=== PATIENT | female | born 1970 | race Caucasian/White ===

== ENCOUNTER 2017-07-29 18:01 | Inpatient (IN) | payer MEDICARE, MEDICAID ==
[2017-07-29] MEDS ORDERED: Sodium Chloride 0.9% 1,000 ML IV ONE (18:40)
--- NOTE | 2017-07-29 18:47 | ED Physician Chart ---
Chief Complaint/HPI - Patient Information Date Seen:: 07/29/17 Time Seen:: 18:42 Chief Complaint:: htn History of Present Illness:: report was pt was sent from [facility] where she is on a 5150 hold due to htn noted by staff today. pt has hx of htn and is on htn meds. pt reports she is here bc she has vomited 10x (Bile/nonbloody) in last day. has some abd aches which are somewhat better now. she thinks maybe has a stomach virus but has been around no known sick contacts. low grade fever 99 x few days. no bakc pain. no dysuria. no blood in stool. Allergies:: Allergies Allergy/AdvReac Type Severity Reaction Status Date / Time Sulfa (Sulfonamide Allergy Verified 07/29/17 18:28 Antibiotics) Vitals:: Vital Signs - 8 hr 07/29/17 18:28 Temp 99.1 F HR 94 RR 16 BP 162/101 O2 Sat % 99 Historian:: Patient Review:: Transfer documents Reviewed Review of Systems - Review of Systems General/Constitutional: No fever, No chills, No weight loss, No weakness, No diaphoresis, No edema, No loss of appetite Skin: No skin lesions, No rash, No bruising Head: No headache, No light-headedness Eyes: No loss of vision, No pain, No diplopia ENT: No earache, No nasal drainage, No sore throat, No tinnitus Neck: No neck pain, No swelling, No thyromegaly, No stiffness, No mass noted Cardio Vascular: No chest pain, No palpitations, No PND, No orthopnea, No edema Pulmonary: No SOB, No cough, No sputum, No wheezing GI: No nausea, Vomiting, No diarrhea, Pain, No melena, No hematochezia, No constipation, No hematemesis G/U: No dysuria, No frequency, No hematuria Musculoskeletal: No bone or joint pain, No back pain, No muscle pain Endocrine: No polyuria, No polydipsia Psychiatric: No prior psych history, No depression, No anxiety, No suicidal ideation Hematopoietic: No bruising, No lymphadenopathy Allergic/Immuno: No urticaria, No angioedema Neurological: No syncope, No focal symptoms, No weakness, No paresthesia, No headache, No seizure, No dizziness, No confusion, No vertigo, Other (no neuro changes, no MEAD. ) Past Medical History - Past Medical History Past Medical History: HTN Social History: Care Facility Psychiatricy History: Other (on 5150 psych hold) Medication: Reviewed Physical Exam - Physical Examination General/Constitutional: Awake, Well-developed, well-nourished, Alert, No distress, GCS 15, Non-toxic appearing, Ambulatory Other Gen/Cons comments:: wn/wh. alert. nad. neuro exam wnl. abd mild tndr..vague..not localized. nrml nabs. Head: Atraumatic Eyes: Lids, conjuctiva normal, PERRL, EOMI Skin: Nl inspection, No rash, No skin lesions, No ecchymosis, Well hydrated, No lymphadenopathy ENMT: External ears, nose nl, Nasal exam nl, Lips, teeth, gums nl Neck: Nontender, Full ROM w/o pain, No JVD, No nuchal rigidity, No bruit, No mass, No stridor Respiratory: Nl effort/Exclusion, Clear to Auscultation, No Wheeze/Rhonchi/Rales Cardio Vascular: RRR, No murmur, gallop, rubs, NL S1 S2 GI: No tenderness/rebounding/guarding, No organomegaly, No hernia, Normal BS's, Nondistended, No mass/bruits, No McBurney tenderness : No CVA tenderness Extremities: No tenderness or effusion, Full ROM, normal strength in all extremities, No edema, Normal digits & nails Neuro/Psych: Alert/oriented, DTR's symmetric, Normal sensory exam, Normal motor strength, Judgement/insight normal, Mood normal, Normal gait, No focal deficits Misc: normal gait, Normal back, No paraspinal tenderness Labs/Radiology/EKG Results - Lab Results Results: Laboratory Tests 07/29/17 07/29/17 07/29/17 18:44 18:44 18:44 WBC 12.1 H RBC 5.07 Hgb 15.0 Hct 45.6 H MCV 89.9 MCH 29.6 MCHC Differential 32.9 RDW 14.0 Plt Count 449 H MPV 7.9 Neutrophils % 82.7 H Lymphocytes % 12.5 L Monocytes % 4.5 Eosinophils % 0.2 Basophils % 0.1 Sodium 132 L Potassium 4.2 Chloride 97 L Carbon Dioxide 25.5 Anion Gap 13.7 BUN 17 Creatinine 0.8 Est GFR ( Amer) > 60.0 Est GFR (Non-Af Amer) > 60.0 BUN/Creatinine Ratio 21.3 Glucose 131 H Whole Bld Lactic Acid Calcium 9.5 Total Bilirubin 0.4 AST 25 ALT 12 Alkaline Phosphatase 89 Troponin I < 0.01 L Total Protein 7.1 Albumin 4.3 Globulin 2.8 Albumin/Globulin Ratio 1.5 Lipase Urine Source Urine Color Urine Clarity Urine pH Ur Specific [place] Urine Protein Urine Glucose (UA) Urine Ketones Urine Blood Urine Nitrate Urine Bilirubin Urine Urobilinogen Ur Leukocyte Esterase Urine RBC Urine WBC Ur Epithelial Cells Urine Bacteria Urine Test 07/29/17 07/29/17 07/29/17 18:44 19:57 20:20 WBC RBC Hgb Hct MCV MCH MCHC Differential RDW Plt Count MPV Neutrophils % Lymphocytes % Monocytes % Eosinophils % Basophils % Sodium Potassium Chloride Carbon Dioxide Anion Gap BUN Creatinine Est GFR ( Amer) Est GFR (Non-Af Amer) BUN/Creatinine Ratio Glucose Whole Bld Lactic Acid 2.17 H* Calcium Total Bilirubin AST ALT Alkaline Phosphatase Troponin I Total Protein Albumin Globulin Albumin/Globulin Ratio Lipase 13 Urine Source CLEAN C Urine Color YELLOW Urine Clarity HAZY Urine pH 7.5 Ur Specific [place] 1.010 Urine Protein 30 H Urine Glucose (UA) NEGATIVE Urine Ketones NEGATIVE Urine Blood LARGE H Urine Nitrate NEGATIVE Urine Bilirubin NEGATIVE Urine Urobilinogen 0.2 Ur Leukocyte Esterase NEGATIVE Urine RBC 25-50 H Urine WBC 0-2 Ur Epithelial Cells MODERATE Urine Bacteria NONE SEEN Urine Test 07/29/17 20:20 WBC RBC Hgb Hct MCV MCH MCHC Differential RDW Plt Count MPV Neutrophils % Lymphocytes % Monocytes % Eosinophils % Basophils % Sodium Potassium Chloride Carbon Dioxide Anion Gap BUN Creatinine Est GFR ( Amer) Est GFR (Non-Af Amer) BUN/Creatinine Ratio Glucose Whole Bld Lactic Acid Calcium Total Bilirubin AST ALT Alkaline Phosphatase Troponin I Total Protein Albumin Globulin Albumin/Globulin Ratio Lipase Urine Source Urine Color Urine Clarity Urine pH Ur Specific [place] Urine Protein Urine Glucose (UA) Urine Ketones Urine Blood Urine Nitrate Urine Bilirubin Urine Urobilinogen Ur Leukocyte Esterase Urine RBC Urine WBC Ur Epithelial Cells Urine Bacteria Urine Test NEGATIVE - Radiology Results Results: ct abd/p - nad - EKG Interpretations EKG Time:: 19:15 Rate & Rhythm: nsr 91 [place]: 68 Intervals: qtc 466 Comments:: ?lvh. no injury pattern ED Septic Shock - . Is Septic Shock (SBP<90, OR Lactate>4 mmol\L) present?: No - <6hrs of presentation: Vital Signs: Vital Signs - 8 hr 07/29/17 18:28 Temp 99.1 F HR 94 RR 16 BP 162/101 O2 Sat % 99 Reassessment (Disposition) - Reassessment Reassessment:: pts htn is not improving. she vomited here 1x and thinks maybe vomited the catapres dose. her emesis was seen by David WHITE who reports it was coffee grnd in appearance. the emesis sample was apparently discarded before I had a chance to examine it. Reassessment Condition:: Improved - Diagnosis Diagnosis:: 1 nausea/vomiting 2 abdominal pain 3 poorly ctrld htn 4 possible ugi bleed - Patient Disposition Admitted to:: Telemetry Condition at Disposition:: Improved
[2017-07-29 19:06] LABS: ALB/GLOB RATIO 1.5 (1.0-1.8); ALKALINE PHOSPHATASE 89 U/L (34-104); ANION GAP 13.7 (7.0-16.0); BILIRUBIN,TOTAL 0.4 mg/dL (0.3-1.0); BUN - UREA NITROGEN 17 mg/dL (7-25); BUN/CREATININE RATIO 21.3; CALCIUM SERUM 9.5 mg/dL (8.6-10.3); CARBON DIOXIDE 25.5 mEq/L (21.0-31.0); CHLORIDE 97 mEq/L (98-107); CREATININE - SERUM 0.8 mg/dL (0.6-1.2); GLUCOSE 131 mg/dL (70-105); POTASSIUM SERUM 4.2 mEq/L (3.5-5.1); SGOT 25 U/L (13-39); SGPT/ALT 12 U/L (7-52); SODIUM SERUM 132 mEq/L (136-145)
[2017-07-29 19:15] LABS: NEUTROPHILE ABSOLUTE 10.1 Th/cmm (1.8-8.0)
[2017-07-29 19:27] LABS: % BASOPHILS 0.1 % (0.0-2.0); % EOSINOPHILS 0.2 % (0.0-5.0); % LYMPHOCYTES 12.5 % (20.0-50.0); % MONOCYTES 4.5 % (2.0-10.0); % NEUTROPHILS 82.7 % (40.0-80.0); HEMATOCRIT 45.6 % (35.0-45.0); MEAN CELL VOLUME 89.9 fl (81-100); MEAN CORPUSCULAR HEMOGLOBIN 29.6 pg (27.0-31.0); MEAN CORPUSCULAR HGB CONC 32.9 pg (28.0-36.0); MEAN PLATELET VOLUME 7.9 fl; PLATELET COUNT 449 Th/cmm (150-400); RED BLOOD COUNT 5.07 Mil/cmm (3.80-5.10)
[2017-07-29 19:34] LABS: WHITE BLOOD COUNT 12.1 Th/cmm (4.8-10.8)
[2017-07-29 21:00] LABS: URINE BILIRUBIN NEGATIVE (NEGATIVE); URINE BLOOD LARGE (NEGATIVE); URINE GLUCOSE (UA) NEGATIVE (NEGATIVE); URINE KETONE NEGATIVE (NEGATIVE); URINE PH 7.5 (4.6 - 8.0); URINE PROTEIN 30 mg/dL (NEGATIVE); URINE UROBILINOGEN 0.2 E.U./dL (0.2 - 1.0)
[2017-07-29 21:35] LABS: URINE COLOR YELLOW
[2017-07-29 21:37] LABS: URINE BACTERIA NONE SEEN /hpf (NONE SEEN); URINE EPITHELIAL CELLS MODERATE /lpf (FEW); URINE RBC 25-50 /hpf (0-5); URINE WBC 0-2 /hpf (0-5)
[2017-07-29 21:43] LABS: INR 0.97 (0.5-1.4); PROTHROMBIN TIME (TEST) 10.1 SECONDS (9.5-11.5)
[2017-07-30] MEDS ORDERED: D5-0.45NS 1,000 ML IV SCH (00:40)
[2017-07-30 02:00] VITALS: BP 164/99
[2017-07-30] MEDS ORDERED: cloNIDine 0.2 mg/24 hr Tdm TD SCH (02:00)
--- NOTE | 2017-07-30 08:21 | Diagnostic Imaging Report ---
CT abdomen and pelvis without intravenous contrast Indication: Abdominal pain and vomiting Comparison: None, Technique: Axial images were obtained from the lung bases to the bilateral proximal femurs without IV contrast. Coronal reconstructions were made. total DLP: 383, CTDI7.7 FINDINGS: Hypoventilatory and atelectatic lung changes are noted. There is a 3.3 x 2 cm indeterminate lesion along the inferior right lobe the liver. Additional subcentimeter hepatic lesions are seen to small to characterize. No focal splenic or pancreatic lesions. No focal adrenal lesions. There is hyperplasia of the left adrenal gland. There is suggestion of adjacent small 7 mm lymph node (image 23, series 2) No evidence of hydronephrosis or focal renal lesions. Distended urinary bladder is noted. Nonspecific gas-filled loops of bowel are noted. No evidence of appendicitis. No evidence of free air or free fluid. Minimal atherosclerosis is noted. The osseous structures demonstrate no acute abnormalities. IMPRESSION: Nonspecific gas-filled loops of bowel without evidence of obstruction. No evidence of appendicitis. Indeterminate 3.3 x 2 cm mass along the inferior right lobe the liver. Further assessment CT liver mass protocol is recommended. Distended urinary bladder catheter no evidence of hydronephrosis. Hyperplasia of left adrenal gland incidentally noted. There is suggestion of a small Adjacent 7 mm lymph node also noted , nonspecific but consider follow-up surveillance.
[2017-07-30] MEDS ORDERED: Magnesium Hydroxide (MOM) 30 mL UDC PO PRN (09:35)
--- NOTE | 2017-07-30 10:01 | History and Physical ---
History of Present Illness - HPI Chief Complaint: HTN HPI: 47 year old female who present to [facility] from [facility] for a 5150 hold due to elevated blood pressure noted by staff today. Patient has a previous history of HTN and is currently on BP meds. Patient presents to the ER with low grade fever for the past few days. denies back pain. No dysuria, Denies blood in the stool. While in the ER patient was noted to have BP elevated at 160/100. Vital Signs: Last Vital Signs Temp 98.5 F 07/30/17 04:23 Pulse 77 07/30/17 04:23 Resp 18 07/30/17 04:23 BP 155/95 07/30/17 04:23 Pulse Ox 97 07/30/17 04:23 Past Medical History Cardiovascular: Report: HTN Pulmonary: Report: No Pertinent Hx TISSUE TECHNOLOGIST: Report: No Pertinent Hx GI: Report: No Pertinent Hx Psych: Report: Psychosis Musculoskeletal: Report: No Pertinent Hx Rheumatologic: Report: No pertinent Hx Infectious Disease: Report: No Pertinent Hx Renal/: Report: No Pertinent Hx Endocrine: Report: No Pertinent Hx Dermatology: Report: No Pertinent Hx - Past Surgical History Past Surgical History: No pertinent Hx Family Medical History - Family Member Mother History Unknown: Yes Social History Smoke: No Alcohol: None Drugs: None Lives: Detention - Medications Home Medications: Home Medication Medication Instructions Recorded Type Acetaminophen [Acetaminophen ER] 650 mg PO PRN 07/30/17 History Clonidine HCl [Catapres] 0.1 mg PO Q6HR PRN 07/30/17 History Diphenhydramine HCl 50 mg PO Q6HR PRN 07/30/17 History Haloperidol 5 mg PO Q6HR PRN 07/30/17 History Ibuprofen 400 mg PO Q4HR PRN 07/30/17 History Lorazepam 1 mg PO Q6HR PRN 07/30/17 History Magnesium Hydroxide [Milk of 30 ml PO DAILY PRN 07/30/17 History Magnesia] OLANZapine [ZyPREXA] 10 mg PO BID 07/30/17 History Ondansetron HCl PO Q6HR PRN 07/30/17 History Trazodone HCl 50 mg PO HS PRN 07/30/17 History Valproic Acid (As Sodium Salt) PO TID 07/30/17 History [Valproic Acid] hydrOXYzine Pamoate [Vistaril] 2 Q4HR PRN 07/30/17 History - Allergies Allergies/Adverse Reactions: Allergies Allergy/AdvReac Type Severity Reaction Status Date / Time Sulfa (Sulfonamide Allergy Verified 07/29/17 18:28 Antibiotics) Review of Systems - Review of Systems Constitutional: Report: No Significant Eyes: Report: No Significant ENT: Report: No Significant Respiratory: Report: No Significant Cardiovascular: Report: No Significant Gastrointestinal: Report: No Significant Genitourinary: Report: No Significant Musculoskeletal: Report: No Significant Skin: Report: No Significant Neurological: Report: No Significant Physical Exam - Physical Exam HEENT: Report: Ears Nose Throat within normal limits Neck: Report: Within normal limits Cardiovascular Systems: Report: +s1/s2 noted, Regular, Rate and Rhythm Respiratory: Report: Breath Sounds are within normal limits Abdomen: Report: Non-tender to palpation Back: Report: Inspection of back is within normal limits. Extremities: Report: Non-tender to palpation. Skin: Report: Color of skin is within normal limits Neuro/Psych: Report: Mood affect is within normal limits - Lab Results All Lab Results last 24 hours: Laboratory Last Values WBC 12.1 Th/cmm (4.8-10.8) H 07/29/17 18:44 RBC 5.07 Mil/cmm (3.80-5.10) 07/29/17 18:44 Hgb 15.0 gm/dL (11.7-15.5) 07/29/17 18:44 Hct 45.6 % (35.0-45.0) H 07/29/17 18:44 MCV 89.9 fl (81-100) 07/29/17 18:44 MCH 29.6 pg (27.0-31.0) 07/29/17 18:44 MCHC Differential 32.9 pg (28.0-36.0) 07/29/17 18:44 RDW 14.0 % (11.5-20.0) 07/29/17 18:44 Plt Count 449 Th/cmm (150-400) H 07/29/17 18:44 MPV 7.9 fl 07/29/17 18:44 Neutrophils % 82.7 % (40.0-80.0) H 07/29/17 18:44 Lymphocytes % 12.5 % (20.0-50.0) L 07/29/17 18:44 Monocytes % 4.5 % (2.0-10.0) 07/29/17 18:44 Eosinophils % 0.2 % (0.0-5.0) 07/29/17 18:44 Basophils % 0.1 % (0.0-2.0) 07/29/17 18:44 PT 10.1 SECONDS (9.5-11.5) 07/29/17 19:57 INR 0.97 (0.5-1.4) 07/29/17 19:57 PTT (Actin FS) 22.0 SECONDS (26.0-38.0) L 07/29/17 19:57 Sodium 132 mEq/L (136-145) L 07/29/17 18:44 Potassium 4.2 mEq/L (3.5-5.1) 07/29/17 18:44 Chloride 97 mEq/L (98-107) L 07/29/17 18:44 Carbon Dioxide 25.5 mEq/L (21.0-31.0) 07/29/17 18:44 Anion Gap 13.7 (7.0-16.0) 07/29/17 18:44 BUN 17 mg/dL (7-25) 07/29/17 18:44 Creatinine 0.8 mg/dL (0.6-1.2) 07/29/17 18:44 Est GFR ( Amer) > 60.0 ml/min (>90) 07/29/17 18:44 Est GFR (Non-Af Amer) > 60.0 ml/min 07/29/17 18:44 BUN/Creatinine Ratio 21.3 07/29/17 18:44 Glucose 131 mg/dL (70-105) H 07/29/17 18:44 Whole Bld Lactic Acid 2.03 mmol/L (0.60-1.99) H* 07/29/17 21:57 Calcium 9.5 mg/dL (8.6-10.3) 07/29/17 18:44 Total Bilirubin 0.4 mg/dL (0.3-1.0) 07/29/17 18:44 AST 25 U/L (13-39) 07/29/17 18:44 ALT 12 U/L (7-52) 07/29/17 18:44 Alkaline Phosphatase 89 U/L (34-104) 07/29/17 18:44 Troponin I < 0.01 ng/mL (0.01-0.05) L 07/29/17 18:44 Total Protein 7.1 gm/dL (6.0-8.3) 07/29/17 18:44 Albumin 4.3 gm/dL (3.7-5.3) 07/29/17 18:44 Globulin 2.8 gm/dL 07/29/17 18:44 Albumin/Globulin Ratio 1.5 (1.0-1.8) 07/29/17 18:44 Lipase 13 U/L (11-82) 07/29/17 18:44 Urine Source CLEAN C 07/29/17 20:20 Urine Color YELLOW 07/29/17 20:20 Urine Clarity HAZY (CLEAR) 07/29/17 20:20 Urine pH 7.5 (4.6 - 8.0) 07/29/17 20:20 Ur Specific [place] 1.010 (1.005-1.030) 07/29/17 20:20 Urine Protein 30 mg/dL (NEGATIVE) H 07/29/17 20:20 Urine Glucose (UA) NEGATIVE mg/dL (NEGATIVE) 07/29/17 20:20 Urine Ketones NEGATIVE mg/dL (NEGATIVE) 07/29/17 20:20 Urine Blood LARGE (NEGATIVE) H 07/29/17 20:20 Urine Nitrate NEGATIVE (NEGATIVE) 07/29/17 20:20 Urine Bilirubin NEGATIVE (NEGATIVE) 07/29/17 20:20 Urine Urobilinogen 0.2 E.U./dL (0.2 - 1.0) 07/29/17 20:20 Ur Leukocyte Esterase NEGATIVE (NEGATIVE) 07/29/17 20:20 Urine RBC 25-50 /hpf (0-5) H 07/29/17 20:20 Urine WBC 0-2 /hpf (0-5) 07/29/17 20:20 Ur Epithelial Cells MODERATE /lpf (FEW) 07/29/17 20:20 Urine Bacteria NONE SEEN /hpf (NONE SEEN) 07/29/17 20:20 Urine Test NEGATIVE 07/29/17 20:20 Blood Type A POSITIVE 07/29/17 21:57 Antibody Screen NEGATIVE 07/29/17 21:57 - Assessment Assessment: intractable nausea/vomiting abdominal pain liver mass noted on CTabd ... will order Abd U/S. GI consult with Dr. Phelps htn elevated ... will add losartan 50mg PO daily. continue to monitor BP possible GIB ... repeat CBC. will order stool occult x 2. Patient on Protonix IV. GI consult. - Plan Plan: intractable nausea/vomiting abdominal pain liver mass noted on CTabd ... will order Abd U/S. GI consult with Dr. Phelps htn elevated ... will add losartan 50mg PO daily. continue to monitor BP possible GIB ... repeat CBC. will order stool occult x 2. Patient on Protonix IV. GI consult.
[2017-07-30] MEDS ORDERED: IOHEXOL 300MG/ML 100 ML VIAL IVP ONE (10:38)
--- NOTE | 2017-07-30 13:32 | Diagnostic Imaging Report ---
Ultrasound abdomen HISTORY: Abdominal pain COMPARISON: CT abdomen and pelvis the same day Technique: Sonography of the abdomen was performed in multiple planes. FINDINGS: The liver demonstrates normal echogenicity with no evidence of focal lesions. The liver measures 14 cm. Gallbladder sludge is noted. Note that small gallstones cannot be definitely excluded. No evidence of gallbladder thickening. The common bile duct measures 3 mm. Evaluation of the pancreas is limited due to bowel gas. The right kidney measures 10.4 x 4.5 cm. No evidence of focal lesions or hydronephrosis. The left kidney measures 9.3 x 5.2 cm. No evidence of focal lesions or hydronephrosis. The spleen measures 9 cm. IMPRESSION: Small amount of gallbladder sludge noted. Note that tiny gallstones cannot be completely excluded. No evidence of gallbladder wall thickening or common bile duct dilatation. No evidence of hydronephrosis.
--- NOTE | 2017-07-30 14:34 | Diagnostic Imaging Report ---
CT abdomen and pelvis without and with intravenous contrast, liver mass protocol Indication: Liver mass Comparison: The abdomen and pelvis on 07/29/2017, Technique: Axial images were obtained from the lung bases to the bilateral iliac crests before and following administration of IV contrast, liver mass protocol Coronal reconstructions were made. total DLP: 455, CTDI 21 FINDINGS: Hypoventilatory atelectatic changes of the lung bases are noted. Few subcentimeter low-density lesions in liver are noted to small characterize suggestive of cysts. There is a 3.3 x 2 cm lesion within the right lobe of the liver. This demonstrates centripetal enhancement on arterial phase images with continued filling in on portal venous images complete filling in on delayed images. This is consistent with a hemangioma. There is also an additional lesion seen along the posterior right lobe liver measuring 1.3 x 1.6 cm demonstrating peripheral centripetal enhancement with continued filling and also most food service representative of a hemangioma. No focal splenic or pancreatic lesions. No focal adrenal lesions. No evidence of hydronephrosis or focal renal lesions. Note the right kidney was incompletely visualized. The osseous structures demonstrate no acute abnormalities. IMPRESSION: 2 liver lesions the largest of which corresponding to lesion seen on recent CT examination without IV contrast. Characteristics of enhancement are most suggestive of liver hemangioma.s If indicated a follow-up surveillance CT in 6-12 months may be obtained Additional subcentimeter low-density liver lesions of the liver too small to characterize but suggestive of cysts.
[2017-07-30 16:28] LABS: % EOSINOPHILS 0.3 % (0.0-5.0); % LYMPHOCYTES 19.3 % (20.0-50.0); % MONOCYTES 5.5 % (2.0-10.0); % NEUTROPHILS 73.9 % (40.0-80.0); HEMATOCRIT 43.6 % (35.0-45.0); HEMOGLOBIN 14.6 gm/dL (11.7-15.5); MEAN CELL VOLUME 89.5 fl (81-100); MEAN CORPUSCULAR HEMOGLOBIN 29.8 pg (27.0-31.0); MEAN CORPUSCULAR HGB CONC 33.4 pg (28.0-36.0); MEAN PLATELET VOLUME 7.5 fl; NEUTROPHILE ABSOLUTE 7.7 Th/cmm (1.8-8.0); PLATELET COUNT 494 Th/cmm (150-400); RED BLOOD COUNT 4.88 Mil/cmm (3.80-5.10); RED CELL DISTRIBUTION WIDTH 13.9 % (11.5-20.0); WHITE BLOOD COUNT 10.4 Th/cmm (4.8-10.8)
[2017-07-30 16:48] LABS: ALB/GLOB RATIO 1.6 (1.0-1.8); ALKALINE PHOSPHATASE 87 U/L (34-104); ANION GAP 11.6 (7.0-16.0); BILIRUBIN,TOTAL 0.5 mg/dL (0.3-1.0); BUN - UREA NITROGEN 14 mg/dL (7-25); CALCIUM SERUM 9.3 mg/dL (8.6-10.3); CARBON DIOXIDE 23.2 mEq/L (21.0-31.0); CHLORIDE 97 mEq/L (98-107); CREATININE - SERUM 0.7 mg/dL (0.6-1.2); GLUCOSE 115 mg/dL (70-105); POTASSIUM SERUM 3.8 mEq/L (3.5-5.1); SGOT 28 U/L (13-39); SGPT/ALT 17 U/L (7-52); SODIUM SERUM 128 mEq/L (136-145)
--- NOTE | 2017-07-31 04:18 | Consultation ---
DATE OF CONSULTATION: 07/30/2017 REASON FOR CONSULTATION: GI bleed and abnormal CAT scan. HISTORY OF PRESENT ILLNESS: This consult was obtained through the courtesy of Dr. Kidd for this 47-year-old with history of bipolar disorder, hypertension, who presented to the hospital with nausea, vomiting, and hematemesis. Apparently, the patient was in the Psych Unit and was given lots of medications. Supposedly according to a story, she did have stomachache. She started vomiting for 2 days and vomited some blood. She was brought into the hospital here. The patient stated she had a colonoscopy and endoscopy within a year and everything was good. She denies any weight loss. Denies any diarrhea or constipation. She has very infrequent rectal bleeding, when she is constipated. She has nausea and vomiting as stated above and she denies any abdominal pain. PAST MEDICAL HISTORY: Hypertension and bipolar disorder. PAST SURGICAL HISTORY: She denies it. SOCIAL HISTORY: Smokes 1 pack a day. Denies alcohol or drugs. FAMILY HISTORY: Mother had breast cancer. REVIEW OF SYSTEMS: As stated above. No weight loss. No diarrhea or constipation. There is some occasional rectal bleeding. No abdominal pain. PHYSICAL EXAMINATION: GENERAL: The patient is awake, oriented to self, place, and time, in no acute distress. VITAL SIGNS: Blood pressure was 155/95, heart rate was 77, respiratory rate was 18, and temperature was 98.5. HEAD AND NECK: Pupils are reactive to light. Extraocular muscles intact. Sclerae are anicteric. Conjunctivae not pale. Oral cavity, no lesion. NECK: Supple. No jugular venous distention. No carotid bruit or lymph node. CHEST: Good respiratory movements. LUNGS: Clear to auscultation. CARDIOVASCULAR: Regular rate and rhythm. No murmur or gallop. ABDOMEN: Soft, nontender, and nondistended. Bowel sounds are present. EXTREMITIES: Lower extremities, no edema. CENTRAL NERVOUS SYSTEM: Nonfocal. LABORATORY DATA: White count 12.1. Rest of CBC unremarkable. PT is normal. Chemistry showed lactic acid 2.17, repeat was 2.03. Liver enzymes were normal. Troponin was normal. The patient had a CAT scan without contrast, which showed nonspecific gas-filled loops of bowel. No obstruction. No appendicitis. There is a 3.3 x 2 cm mass along the inferior right loop of the liver, distended bladder. IMPRESSION: This is a 47-year-old with bipolar and hypertension, presented with nausea, vomiting, hematemesis, and a lesion inferior to the liver. ASSESSMENT AND PLAN: 1. Nausea, vomiting, and hematemesis. Most likely, as the patient stated this is a side effect to the medications and maybe with recurrent vomiting, she had a small Calli-King tear. We offered her an endoscopy, at that time she declined it stating that she had one within a year even though I stated to her that at that time she was not having hematemesis, but at this time, she is still insisting not having it. Other differential might include cholelithiasis, especially with the lactic acid. Recommendations: 1. We will await ultrasound. 2. We will recheck liver enzymes in the morning. 3. We will start the patient on soft diet. 4. We will check CBC in the morning. 5. If future bleeding, the patient might reconsider the endoscopy. 6. Further recommendations to follow. 2. Lesion, inferior to the liver. This could be some incidental finding, could be a liver mass. So at this time, we will check a CT scan with liver protocol. We will check liver enzymes in the morning. We will check alpha fetoprotein. We will check hepatitis panel and then further recommendations to follow. Other medical problems such as hypertension and bipolar disorder as per Dr. Kidd. Thank you, Dr. Kidd for allowing me to participate in the care of the patient. If you have any further questions, please let me know. [facility]# [id number]
--- NOTE | 2017-07-31 08:11 | General Progress Note ---
Subjective - Review of Systems Service Date: 07/31/17 Subjective: Awake,alert,afebrile. complains of headache today. Underwent CT abd. Please see dictated report. Patient has headache this mornin still has nausea and vomiting but better. Was able to eat this morning. Blood pressure better controlled today. Patient to have a CT abd with liver protocol. NA noted at 128. Patient started on IV NS. Objective - Results Result Diagrams: 07/30/17 16:05 07/30/17 16:05 Recent Labs: Laboratory Last Values WBC 10.4 Th/cmm (4.8-10.8) 07/30/17 16:05 RBC 4.88 Mil/cmm (3.80-5.10) 07/30/17 16:05 Hgb 14.6 gm/dL (11.7-15.5) 07/30/17 16:05 Hct 43.6 % (35.0-45.0) 07/30/17 16:05 MCV 89.5 fl (81-100) 07/30/17 16:05 MCH 29.8 pg (27.0-31.0) 07/30/17 16:05 MCHC Differential 33.4 pg (28.0-36.0) 07/30/17 16:05 RDW 13.9 % (11.5-20.0) 07/30/17 16:05 Plt Count 494 Th/cmm (150-400) H 07/30/17 16:05 MPV 7.5 fl 07/30/17 16:05 Neutrophils % 73.9 % (40.0-80.0) 07/30/17 16:05 Lymphocytes % 19.3 % (20.0-50.0) L 07/30/17 16:05 Monocytes % 5.5 % (2.0-10.0) 07/30/17 16:05 Eosinophils % 0.3 % (0.0-5.0) 07/30/17 16:05 Basophils % 1.0 % (0.0-2.0) 07/30/17 16:05 PT 10.1 SECONDS (9.5-11.5) 07/29/17 19:57 INR 0.97 (0.5-1.4) 07/29/17 19:57 PTT (Actin FS) 22.0 SECONDS (26.0-38.0) L 07/29/17 19:57 Sodium 128 mEq/L (136-145) L 07/30/17 16:05 Potassium 3.8 mEq/L (3.5-5.1) 07/30/17 16:05 Chloride 97 mEq/L (98-107) L 07/30/17 16:05 Carbon Dioxide 23.2 mEq/L (21.0-31.0) 07/30/17 16:05 Anion Gap 11.6 (7.0-16.0) 07/30/17 16:05 BUN 14 mg/dL (7-25) 07/30/17 16:05 Creatinine 0.7 mg/dL (0.6-1.2) 07/30/17 16:05 Est GFR ( Amer) > 60.0 ml/min (>90) 07/30/17 16:05 Est GFR (Non-Af Amer) > 60.0 ml/min 07/30/17 16:05 BUN/Creatinine Ratio 20.0 07/30/17 16:05 Glucose 115 mg/dL (70-105) H 07/30/17 16:05 Whole Bld Lactic Acid 2.03 mmol/L (0.60-1.99) H* 07/29/17 21:57 Calcium 9.3 mg/dL (8.6-10.3) 07/30/17 16:05 Total Bilirubin 0.5 mg/dL (0.3-1.0) 07/30/17 16:05 AST 28 U/L (13-39) 07/30/17 16:05 ALT 17 U/L (7-52) 07/30/17 16:05 Alkaline Phosphatase 87 U/L (34-104) 07/30/17 16:05 Troponin I < 0.01 ng/mL (0.01-0.05) L 07/29/17 18:44 Total Protein 6.8 gm/dL (6.0-8.3) 07/30/17 16:05 Albumin 4.2 gm/dL (3.7-5.3) 07/30/17 16:05 Globulin 2.6 gm/dL 07/30/17 16:05 Albumin/Globulin Ratio 1.6 (1.0-1.8) 07/30/17 16:05 Lipase 13 U/L (11-82) 07/29/17 18:44 Urine Source CLEAN C 07/29/17 20:20 Urine Color YELLOW 07/29/17 20:20 Urine Clarity HAZY (CLEAR) 07/29/17 20:20 Urine pH 7.5 (4.6 - 8.0) 07/29/17 20:20 Ur Specific [place] 1.010 (1.005-1.030) 07/29/17 20:20 Urine Protein 30 mg/dL (NEGATIVE) H 07/29/17 20:20 Urine Glucose (UA) NEGATIVE mg/dL (NEGATIVE) 07/29/17 20:20 Urine Ketones NEGATIVE mg/dL (NEGATIVE) 07/29/17 20:20 Urine Blood LARGE (NEGATIVE) H 07/29/17 20:20 Urine Nitrate NEGATIVE (NEGATIVE) 07/29/17 20:20 Urine Bilirubin NEGATIVE (NEGATIVE) 07/29/17 20:20 Urine Urobilinogen 0.2 E.U./dL (0.2 - 1.0) 07/29/17 20:20 Ur Leukocyte Esterase NEGATIVE (NEGATIVE) 07/29/17 20:20 Urine RBC 25-50 /hpf (0-5) H 07/29/17 20:20 Urine WBC 0-2 /hpf (0-5) 07/29/17 20:20 Ur Epithelial Cells MODERATE /lpf (FEW) 07/29/17 20:20 Urine Bacteria NONE SEEN /hpf (NONE SEEN) 07/29/17 20:20 Urine Test NEGATIVE 07/29/17 20:20 Blood Type A POSITIVE 07/29/17 21:57 Antibody Screen NEGATIVE 07/29/17 21:57 - Physical Exam Vitals and I&O: Vital Signs Temp 97.2 F 07/31/17 04:00 Pulse 72 07/31/17 04:00 Resp 19 07/31/17 04:00 BP 110/62 07/31/17 04:00 Pulse Ox 96 07/31/17 04:00 Intake & Output 07/30/17 07/31/17 07/31/17 18:59 06:59 18:59 Intake Total 0 240 Balance 0 240 Weight (lbs) 57.606 kg 55.792 kg Intake: Oral 0 240 Other: # Voids 2 3 # Bowel Movements 0 Stool Characteristics Soft Active Medications: Current Medications Clonidine HCl (Ikrpyqob-Bce-4) 1 patch TD We [facility] Stop: 09/28/17 01:59 PST Last Admin: 07/30/17 01:29 Dose: 1 patch Diphenhydramine HCl (Benadryl) 50 mg PO Q6HR PRN PRN Reason: Agitation (give with haldol) Divalproex Sodium (Depakote Dr) 250 mg PO TID [facility] Stop: 09/28/17 13:59 Last Admin: 07/30/17 21:57 Dose: Not Given Haloperidol (Haldol) 5 mg PO Q6HR PRN; Protocol PRN Reason: Agitation Stop: 09/28/17 09:34 Dextrose/Sodium Chloride (D5-0.45ns) 1,000 mls @ 70 mls/hr IV .[id number] [facility] Stop: 09/28/17 00:39 Last Admin: 07/30/17 01:29 Dose: 70 mls/hr Lorazepam (Ativan) 1 mg PO Q6HR PRN; Protocol PRN Reason: Agitation Stop: 09/28/17 09:34 Losartan Potassium (Cozaar) 50 mg PO DAILY [facility] Stop: 09/29/17 08:59 Magnesium Hydroxide (Milk Of Magnesia) 30 ml PO DAILY PRN PRN Reason: Constipation Stop: 09/28/17 09:34 Olanzapine (Zyprexa) 10 mg PO BID IFEANYI PRN Reason: Protocol Stop: 09/28/17 16:59 Last Admin: 07/30/17 21:10 Dose: 10 mg Ondansetron HCl (Zofran Odt) 4 mg PO Q6HR PRN PRN Reason: Nausea / Vomiting Trazodone HCl (Desyrel) 50 mg PO HS PRN; Protocol PRN Reason: Insomnia Stop: 09/28/17 09:34 General: Alert, Oriented x3 HEENT: Atraumatic Neck: Supple Cardiovascular: Regular rate, Normal S1, Normal S2 Lungs: Clear to auscultation Abdomen: Bowel sounds Extremities: no Clubbing, no Cyanosis, no Edema - Procedures Procedures: Procedures Procedure Code Date DX ULTRASOUND-GRAV UTER 88.78 01/15/99 OB US >/= 14 WKS SNGL FETUS 34317 01/15/99 Assessment/Plan - Problem List Patient Problems: All Active Problems Abdominal pain (Acute) R10.9 Hypertension (Acute) I10 Hyponatremia (Acute) E87.1 Intractable nausea and vomiting (Acute) R11.2 Liver mass (Acute) R16.0 - Assessment Assessment: intractable nausea/vomiting abdominal pain liver mass noted on CTabd ... will order Abd U/S. GI consult with Dr. Phelps htn elevated ... will add losartan 50mg PO daily. continue to monitor BP possible GIB ... repeat CBC. will order stool occult x 2. Patient on Protonix IV. GI consult. - Plan Plan: intractable nausea/vomiting abdominal pain liver mass noted on CTabd ... will order Abd U/S. GI consult with Dr. Phelps htn controlled ... will add losartan 50mg PO daily. continue to monitor BP possible GIB ... repeat CBC. will order stool occult x 2. Patient on Protonix IV. GI consult. hyponatremia ... will order NS @ 50cc/hr. repeat CMP tomorrow.
[2017-07-31] MEDS: Sodium Chloride 0.9% 1,000 ML IV SCH (09:03)
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
--- NOTE | 2017-08-01 03:40 | Admit Criteria Form ---
Admit Criteria Forms - Admit Criteria Diagnosis: VOMITING Clinical Indications for Admission to Inpatient Care ( Place 'X' for any and all applicable criteria): Admission is indicated for 1 or more of the following(1)(2)(3): [ ]I. Complete or partial gastrointestinal obstruction [ ]II. Vomiting due to significant metabolic derangement (eg, severe hypercalcemia, diabetic ketoacidosis) [ ]III. Other cause of vomiting requiring hospitalization (eg, poisoning, increased intracranial pressure) [X ]IV. Inpatient admission required rather than observation care because of 1 or more of the following [ ]i) Hemodynamic instability [X ]ii) Vomiting that is severe or persistent indicated by 1 or more of the following [X] 1) Numerous episodes of vomiting in past 24hours (eg , every 1 to 2 hours) 2) Suggests severe underlying cause or complication (eg , projectile, feculent, bilious, coffee ground, bloody) 3) Appropriate antiemetic treatment (eg, repeated oral or parenteral dosing) does not sufficiently reduce vomiting within 12 to 24 hours of treatment 4) Treatment regimen necessary to adequately control vomiting requires inpatient level of care (eg, not immediately available in outpatient setting) [ ]iii) Severe electrolyte abnormalities requiring inpatient care [ ]iv) Severe pain requiring acute inpatient management( Continuous or frequent (eg, every 2 to 4 hours) parental analgesics or analgesic regimen that can only be performed or initiated in inpatient setting) [ ]v) High fever or infection requiring inpatient admission as indicated by 1 or more of the following(7)(8): [ ]1) Appropriate outpatient or observation care antimicrobial treatment unavailable, not effective, or not feasible [ ]2) Documented bacteremia [ ]3) Temp >104.9 degrees F (40.5 degrees C) (oral) [ ]4) Temp >103.1 degrees F (39.5 C) (oral) or <96.8 degrees F (36 C) (rectal) that does not respond to all emergency treatment measures [ ]vi) Acute renal failure [ ]vii) IV fluid required rather than oral rehydration to replace significant on going losses (greater than 3 L/m2 per day) [ ]viii) Parenteral nutrition regimen that must be implemented on inpatient basis [ ]ix) Other condition, treatment or monitoring requiring inpatient admission Extended stay beyond goal length of stay may be needed for(1)(4): [ ]a) Severe vomiting [ ]b) Persistent vomiting, vital sign changes, severe electrolyte imbalance , or diagnosed cause of vomiting that requires continued hospitalization (eg, gastrointestinal obstruction , increased intracranial pressure) [ ]c) Surgery to treat identified causes of vomiting (eg, bowel obstruction , intracranial process) [ ]d) Comorbid illness that requires inpatient care (eg, acute heart failure , renal failure) [ ]e) Need for inpatient endoscopy The original [employer] content created by [employer] has been revised. The portions of the content which have been revised are identified through the use of italic text or in bold, and [facility] has neither reviewed nor approved the modified material. All other unmodified content is copyright [employer]. Please see references footnoted in the original [employer] edition 2016 Admit Criteria Met?: Yes
--- NOTE | 2017-08-01 11:34 | General Progress Note ---
Subjective - Review of Systems Service Date: 08/01/17 Subjective: Awake,alert,afebrile. Patient refused IV fluids and blood pressure medication. CT abd showing hemangioma. Patients mood labile. Objective - Results Result Diagrams: 07/30/17 16:05 07/30/17 16:05 Recent Labs: Laboratory Last Values WBC 10.4 Th/cmm (4.8-10.8) 07/30/17 16:05 RBC 4.88 Mil/cmm (3.80-5.10) 07/30/17 16:05 Hgb 14.6 gm/dL (11.7-15.5) 07/30/17 16:05 Hct 43.6 % (35.0-45.0) 07/30/17 16:05 MCV 89.5 fl (81-100) 07/30/17 16:05 MCH 29.8 pg (27.0-31.0) 07/30/17 16:05 MCHC Differential 33.4 pg (28.0-36.0) 07/30/17 16:05 RDW 13.9 % (11.5-20.0) 07/30/17 16:05 Plt Count 494 Th/cmm (150-400) H 07/30/17 16:05 MPV 7.5 fl 07/30/17 16:05 Neutrophils % 73.9 % (40.0-80.0) 07/30/17 16:05 Lymphocytes % 19.3 % (20.0-50.0) L 07/30/17 16:05 Monocytes % 5.5 % (2.0-10.0) 07/30/17 16:05 Eosinophils % 0.3 % (0.0-5.0) 07/30/17 16:05 Basophils % 1.0 % (0.0-2.0) 07/30/17 16:05 PT 10.1 SECONDS (9.5-11.5) 07/29/17 19:57 INR 0.97 (0.5-1.4) 07/29/17 19:57 PTT (Actin FS) 22.0 SECONDS (26.0-38.0) L 07/29/17 19:57 Sodium 128 mEq/L (136-145) L 07/30/17 16:05 Potassium 3.8 mEq/L (3.5-5.1) 07/30/17 16:05 Chloride 97 mEq/L (98-107) L 07/30/17 16:05 Carbon Dioxide 23.2 mEq/L (21.0-31.0) 07/30/17 16:05 Anion Gap 11.6 (7.0-16.0) 07/30/17 16:05 BUN 14 mg/dL (7-25) 07/30/17 16:05 Creatinine 0.7 mg/dL (0.6-1.2) 07/30/17 16:05 Est GFR ( Amer) > 60.0 ml/min (>90) 07/30/17 16:05 Est GFR (Non-Af Amer) > 60.0 ml/min 07/30/17 16:05 BUN/Creatinine Ratio 20.0 07/30/17 16:05 Glucose 115 mg/dL (70-105) H 07/30/17 16:05 Whole Bld Lactic Acid 2.03 mmol/L (0.60-1.99) H* 07/29/17 21:57 Calcium 9.3 mg/dL (8.6-10.3) 07/30/17 16:05 Total Bilirubin 0.5 mg/dL (0.3-1.0) 07/30/17 16:05 AST 28 U/L (13-39) 07/30/17 16:05 ALT 17 U/L (7-52) 07/30/17 16:05 Alkaline Phosphatase 87 U/L (34-104) 07/30/17 16:05 Troponin I < 0.01 ng/mL (0.01-0.05) L 07/29/17 18:44 Total Protein 6.8 gm/dL (6.0-8.3) 07/30/17 16:05 Albumin 4.2 gm/dL (3.7-5.3) 07/30/17 16:05 Globulin 2.6 gm/dL 07/30/17 16:05 Albumin/Globulin Ratio 1.6 (1.0-1.8) 07/30/17 16:05 Lipase 13 U/L (11-82) 07/29/17 18:44 Tumor Marker AFP 5.6 ng/mL (0.0-8.3) 09/06/17 16:05 Urine Source CLEAN C 07/29/17 20:20 Urine Color YELLOW 07/29/17 20:20 Urine Clarity HAZY (CLEAR) 07/29/17 20:20 Urine pH 7.5 (4.6 - 8.0) 07/29/17 20:20 Ur Specific [place] 1.010 (1.005-1.030) 07/29/17 20:20 Urine Protein 30 mg/dL (NEGATIVE) H 07/29/17 20:20 Urine Glucose (UA) NEGATIVE mg/dL (NEGATIVE) 07/29/17 20:20 Urine Ketones NEGATIVE mg/dL (NEGATIVE) 07/29/17 20:20 Urine Blood LARGE (NEGATIVE) H 07/29/17 20:20 Urine Nitrate NEGATIVE (NEGATIVE) 07/29/17 20:20 Urine Bilirubin NEGATIVE (NEGATIVE) 07/29/17 20:20 Urine Urobilinogen 0.2 E.U./dL (0.2 - 1.0) 07/29/17 20:20 Ur Leukocyte Esterase NEGATIVE (NEGATIVE) 07/29/17 20:20 Urine RBC 25-50 /hpf (0-5) H 07/29/17 20:20 Urine WBC 0-2 /hpf (0-5) 07/29/17 20:20 Ur Epithelial Cells MODERATE /lpf (FEW) 07/29/17 20:20 Urine Bacteria NONE SEEN /hpf (NONE SEEN) 07/29/17 20:20 Urine Test NEGATIVE 07/29/17 20:20 Blood Type A POSITIVE 07/29/17 21:57 Antibody Screen NEGATIVE 07/29/17 21:57 - Physical Exam Vitals and I&O: Vital Signs Temp 98.2 F 08/01/17 08:00 Pulse 78 08/01/17 08:00 Resp 16 08/01/17 08:00 BP 94/69 08/01/17 08:00 Pulse Ox 96 08/01/17 08:00 Intake & Output 07/31/17 08/01/17 08/01/17 18:59 06:59 18:59 Intake Total 1000 0 Balance 1000 0 Weight (lbs) 55.792 kg 56.245 kg Intake: Oral 1000 0 Other: # Voids 2 Active Medications: Current Medications Clonidine HCl (Ydhhcbrt-Gxs-7) 1 patch TD We IFEANYI Stop: 09/28/17 01:59 PST Last Admin: 07/30/17 01:29 Dose: 1 patch Diphenhydramine HCl (Benadryl) 50 mg PO Q6HR PRN PRN Reason: Agitation (give with haldol) Divalproex Sodium (Depakote Dr) 250 mg PO TID [facility] Stop: 09/28/17 13:59 Last Admin: 08/01/17 08:39 Dose: Not Given Haloperidol (Haldol) 5 mg PO Q6HR PRN; Protocol PRN Reason: Agitation Stop: 09/28/17 09:34 Sodium Chloride (Nacl 0.9%) 1,000 mls @ 50 mls/hr IV .Q20H IFEANYI Stop: 09/29/17 08:08 Last Admin: 07/31/17 09:03 Dose: 50 mls/hr Lorazepam (Ativan) 1 mg PO Q6HR PRN; Protocol PRN Reason: Agitation Stop: 09/28/17 09:34 Magnesium Hydroxide (Milk Of Magnesia) 30 ml PO DAILY PRN PRN Reason: Constipation Stop: 09/28/17 09:34 Olanzapine (Zyprexa) 10 mg PO BID IFEANYI PRN Reason: Protocol Stop: 09/28/17 16:59 Last Admin: 08/01/17 08:36 Dose: 10 mg Ondansetron HCl (Zofran Odt) 4 mg PO Q6HR PRN PRN Reason: Nausea / Vomiting Trazodone HCl (Desyrel) 50 mg PO HS PRN; Protocol PRN Reason: Insomnia Stop: 09/28/17 09:34 General: Alert, Oriented x3 HEENT: Atraumatic Neck: Supple Cardiovascular: Regular rate, Normal S1, Normal S2 Lungs: Clear to auscultation Abdomen: Bowel sounds Extremities: no Clubbing, no Cyanosis, no Edema - Procedures Procedures: Procedures Procedure Code Date DX ULTRASOUND-GRAV UTER 88.78 01/15/99 OB US >/= 14 WKS SNGL FETUS 28114 01/15/99 Assessment/Plan - Problem List Patient Problems: All Active Problems Abdominal pain (Acute) R10.9 Hypertension (Acute) I10 Hyponatremia (Acute) E87.1 Intractable nausea and vomiting (Acute) R11.2 Liver mass (Acute) R16.0 - Assessment Assessment: intractable nausea/vomiting abdominal pain improved. Hemangioma noted on CT Abd per liver protocol.... GI consult with Dr. Phelps htn ...continue to monitor. possible GIB ... repeat CBC. will order stool occult x 2. Patient on Protonix IV. GI consult. - Plan Plan: intractable nausea/vomiting abdominal pain improved. Hemangioma noted on CT Abd per liver protocol.... GI consult with Dr. Phelps htn ...continue to monitor. possible GIB ... repeat CBC. will order stool occult x 2. Patient on Protonix IV. GI consult.
[2017-08-01 11:35] LABS: ALB/GLOB RATIO 1.5 (1.0-1.8); ALKALINE PHOSPHATASE 69 U/L (34-104); ANION GAP 7.9 (7.0-16.0); BILIRUBIN,TOTAL 0.4 mg/dL (0.3-1.0); BUN - UREA NITROGEN 21 mg/dL (7-25); BUN/CREATININE RATIO 26.3; CALCIUM SERUM 8.4 mg/dL (8.6-10.3); CARBON DIOXIDE 26.5 mEq/L (21.0-31.0); CHLORIDE 103 mEq/L (98-107); CREATININE - SERUM 0.8 mg/dL (0.6-1.2); GLUCOSE 101 mg/dL (70-105); POTASSIUM SERUM 3.4 mEq/L (3.5-5.1); SGOT 18 U/L (13-39); SGPT/ALT 28 U/L (7-52); SODIUM SERUM 134 mEq/L (136-145)
[2017-08-01] MEDS ORDERED: Potassium Chloride 20 mEq ER Tab PO ONE (11:38)
--- NOTE | 2017-08-02 05:58 | General Progress Note ---
Subjective - Review of Systems Service Date: 08/02/17 Subjective: Awake,alert,afebrile. Patient refused IV fluids and blood pressure medication. CT abd showing hemangioma. Patients mood labile. Objective - Results Result Diagrams: 07/30/17 16:05 08/01/17 10:48 Recent Labs: Laboratory Last Values WBC 10.4 Th/cmm (4.8-10.8) 07/30/17 16:05 RBC 4.88 Mil/cmm (3.80-5.10) 07/30/17 16:05 Hgb 14.6 gm/dL (11.7-15.5) 07/30/17 16:05 Hct 43.6 % (35.0-45.0) 07/30/17 16:05 MCV 89.5 fl (81-100) 07/30/17 16:05 MCH 29.8 pg (27.0-31.0) 07/30/17 16:05 MCHC Differential 33.4 pg (28.0-36.0) 07/30/17 16:05 RDW 13.9 % (11.5-20.0) 07/30/17 16:05 Plt Count 494 Th/cmm (150-400) H 07/30/17 16:05 MPV 7.5 fl 07/30/17 16:05 Neutrophils % 73.9 % (40.0-80.0) 07/30/17 16:05 Lymphocytes % 19.3 % (20.0-50.0) L 07/30/17 16:05 Monocytes % 5.5 % (2.0-10.0) 07/30/17 16:05 Eosinophils % 0.3 % (0.0-5.0) 07/30/17 16:05 Basophils % 1.0 % (0.0-2.0) 07/30/17 16:05 PT 10.1 SECONDS (9.5-11.5) 07/29/17 19:57 INR 0.97 (0.5-1.4) 07/29/17 19:57 PTT (Actin FS) 22.0 SECONDS (26.0-38.0) L 07/29/17 19:57 Sodium 134 mEq/L (136-145) L 08/01/17 10:48 Potassium 3.4 mEq/L (3.5-5.1) L 08/01/17 10:48 Chloride 103 mEq/L (98-107) 08/01/17 10:48 Carbon Dioxide 26.5 mEq/L (21.0-31.0) 08/01/17 10:48 Anion Gap 7.9 (7.0-16.0) 08/01/17 10:48 BUN 21 mg/dL (7-25) 08/01/17 10:48 Creatinine 0.8 mg/dL (0.6-1.2) 08/01/17 10:48 Est GFR ( Amer) > 60.0 ml/min (>90) 08/01/17 10:48 Est GFR (Non-Af Amer) > 60.0 ml/min 08/01/17 10:48 BUN/Creatinine Ratio 26.3 08/01/17 10:48 Glucose 101 mg/dL (70-105) 08/01/17 10:48 Whole Bld Lactic Acid 2.03 mmol/L (0.60-1.99) H* 07/29/17 21:57 Calcium 8.4 mg/dL (8.6-10.3) L 08/01/17 10:48 Total Bilirubin 0.4 mg/dL (0.3-1.0) 08/01/17 10:48 AST 18 U/L (13-39) 08/01/17 10:48 ALT 28 U/L (7-52) 08/01/17 10:48 Alkaline Phosphatase 69 U/L (34-104) 08/01/17 10:48 Troponin I < 0.01 ng/mL (0.01-0.05) L 07/29/17 18:44 Total Protein 5.7 gm/dL (6.0-8.3) L 08/01/17 10:48 Albumin 3.4 gm/dL (3.7-5.3) L 08/01/17 10:48 Globulin 2.3 gm/dL 08/01/17 10:48 Albumin/Globulin Ratio 1.5 (1.0-1.8) 08/01/17 10:48 Lipase 13 U/L (11-82) 07/29/17 18:44 Tumor Marker AFP 5.6 ng/mL (0.0-8.3) 07/30/17 16:05 Urine Source CLEAN C 07/29/17 20:20 Urine Color YELLOW 07/29/17 20:20 Urine Clarity HAZY (CLEAR) 07/29/17 20:20 Urine pH 7.5 (4.6 - 8.0) 07/29/17 20:20 Ur Specific [place] 1.010 (1.005-1.030) 07/29/17 20:20 Urine Protein 30 mg/dL (NEGATIVE) H 07/29/17 20:20 Urine Glucose (UA) NEGATIVE mg/dL (NEGATIVE) 07/29/17 20:20 Urine Ketones NEGATIVE mg/dL (NEGATIVE) 07/29/17 20:20 Urine Blood LARGE (NEGATIVE) H 07/29/17 20:20 Urine Nitrate NEGATIVE (NEGATIVE) 07/29/17 20:20 Urine Bilirubin NEGATIVE (NEGATIVE) 07/29/17 20:20 Urine Urobilinogen 0.2 E.U./dL (0.2 - 1.0) 07/29/17 20:20 Ur Leukocyte Esterase NEGATIVE (NEGATIVE) 07/29/17 20:20 Urine RBC 25-50 /hpf (0-5) H 07/29/17 20:20 Urine WBC 0-2 /hpf (0-5) 07/29/17 20:20 Ur Epithelial Cells MODERATE /lpf (FEW) 07/29/17 20:20 Urine Bacteria NONE SEEN /hpf (NONE SEEN) 07/29/17 20:20 Urine Test NEGATIVE 07/29/17 20:20 Blood Type A POSITIVE 07/29/17 21:57 Antibody Screen NEGATIVE 07/29/17 21:57 - Physical Exam Vitals and I&O: Vital Signs Temp 97.9 F 08/01/17 19:52 Pulse 73 08/01/17 19:52 Resp 20 08/01/17 19:52 BP 99/60 08/01/17 12:00 Pulse Ox 97 08/01/17 19:52 Intake & Output 08/01/17 08/01/17 08/02/17 06:59 18:59 06:59 Intake Total 0 300 200 Balance 0 300 200 Weight (lbs) 56.245 kg 56.245 kg 56.245 kg Intake: Oral 0 300 200 Other: # Voids 3 # Bowel Movements 0 Active Medications: Current Medications Clonidine HCl (Khgajkko-Vhu-8) 1 patch TD We IFEANYI Stop: 09/28/17 01:59 PST Last Admin: 07/30/17 01:29 Dose: 1 patch Diphenhydramine HCl (Benadryl) 50 mg PO Q6HR PRN PRN Reason: Agitation (give with haldol) Divalproex Sodium (Depakote Dr) 250 mg PO TID [facility] Stop: 09/28/17 13:59 Last Admin: 08/01/17 21:07 Dose: Not Given Haloperidol (Haldol) 5 mg PO Q6HR PRN; Protocol PRN Reason: Agitation Stop: 09/28/17 09:34 Sodium Chloride (Nacl 0.9%) 1,000 mls @ 50 mls/hr IV .Q20H IFEANYI Stop: 09/29/17 08:08 Last Admin: 07/31/17 09:03 Dose: 50 mls/hr Lorazepam (Ativan) 1 mg PO Q6HR PRN; Protocol PRN Reason: Agitation Stop: 09/28/17 09:34 Magnesium Hydroxide (Milk Of Magnesia) 30 ml PO DAILY PRN PRN Reason: Constipation Stop: 09/28/17 09:34 Olanzapine (Zyprexa) 10 mg PO BID IFEANYI PRN Reason: Protocol Stop: 09/28/17 16:59 Last Admin: 08/01/17 21:53 Dose: 10 mg Ondansetron HCl (Zofran Odt) 4 mg PO Q6HR PRN PRN Reason: Nausea / Vomiting Trazodone HCl (Desyrel) 50 mg PO HS PRN; Protocol PRN Reason: Insomnia Stop: 09/28/17 09:34 General: Alert, Oriented x3 HEENT: Atraumatic Neck: Supple Cardiovascular: Regular rate, Normal S1, Normal S2 Lungs: Clear to auscultation Abdomen: Bowel sounds Extremities: no Clubbing, no Cyanosis, no Edema - Procedures Procedures: Procedures Procedure Code Date DX ULTRASOUND-GRAV UTER 88.78 01/15/99 OB US >/= 14 WKS SNGL FETUS 09334 01/15/99 Assessment/Plan - Problem List Patient Problems: All Active Problems Abdominal pain (Acute) R10.9 Hypertension (Acute) I10 Hyponatremia (Acute) E87.1 Intractable nausea and vomiting (Acute) R11.2 Liver mass (Acute) R16.0 - Assessment Assessment: intractable nausea/vomiting abdominal pain improved. Hemangioma noted on CT Abd per liver protocol.... GI consult with Dr. Phelps htn ...continue to monitor. possible GIB ... repeat CBC. will order stool occult x 2. Patient on Protonix IV. GI consult. - Plan Plan: intractable nausea/vomiting abdominal pain improved. Hemangioma noted on CT Abd per liver protocol.... GI consult with Dr. Phelps htn ...continue to monitor. possible GIB ... repeat CBC. will order stool occult x 2. Patient on Protonix IV. GI consult.
[2017-08-02] MEDS: Sodium Chloride 0.9% 1,000 ML IV SCH ×2 (18:09→19:35)
[2017-08-02 18:16] LABS: URINE BILIRUBIN NEGATIVE (NEGATIVE); URINE BLOOD SMALL (NEGATIVE); URINE COLOR YELLOW; URINE GLUCOSE (UA) NEGATIVE (NEGATIVE); URINE KETONE NEGATIVE (NEGATIVE); URINE PROTEIN NEGATIVE (NEGATIVE)
[2017-08-02 18:18] LABS: URINE BACTERIA FEW /hpf (NONE SEEN); URINE EPITHELIAL CELLS FEW /lpf (FEW)
--- NOTE | 2017-08-02 19:15 | Progress Notes ---
DATE: 08/01/2017 Case was discussed with staff of the patient, reviewed records. The patient today is more cooperative, she is allowing the staff to put her IV and has not taken them out. She is easier to redirect. She denies any current intent to harm herself or anybody. She was, however, agitated yesterday, irritable. Today, is calmer and more talkative. The patient is on the 5250 hold and had a hearing with the sat tutor on 07/25/2017. The patient started acting out and she was medicated. She could always go back to [place] to continue her treatment there. Thank you very much for allowing me to participate in the care of this most interesting lady. JOB# [id number]
[2017-08-03] MEDS: Sodium Chloride 0.9% 1,000 ML IV SCH ×4 (01:16→22:00)
--- NOTE | 2017-08-03 07:17 | General Progress Note ---
Subjective - Review of Systems Service Date: 08/03/17 Subjective: Awake,alert,afebrile. Patient refused IV fluids and blood pressure medication. CT abd showing hemangioma. Patients mood labile. Objective - Results Result Diagrams: 07/30/17 16:05 08/01/17 10:48 Recent Labs: Laboratory Last Values WBC 10.4 Th/cmm (4.8-10.8) 07/30/17 16:05 RBC 4.88 Mil/cmm (3.80-5.10) 07/30/17 16:05 Hgb 14.6 gm/dL (11.7-15.5) 07/30/17 16:05 Hct 43.6 % (35.0-45.0) 07/30/17 16:05 MCV 89.5 fl (81-100) 07/30/17 16:05 MCH 29.8 pg (27.0-31.0) 07/30/17 16:05 MCHC Differential 33.4 pg (28.0-36.0) 07/30/17 16:05 RDW 13.9 % (11.5-20.0) 07/30/17 16:05 Plt Count 494 Th/cmm (150-400) H 07/30/17 16:05 MPV 7.5 fl 07/30/17 16:05 Neutrophils % 73.9 % (40.0-80.0) 07/30/17 16:05 Lymphocytes % 19.3 % (20.0-50.0) L 07/30/17 16:05 Monocytes % 5.5 % (2.0-10.0) 07/30/17 16:05 Eosinophils % 0.3 % (0.0-5.0) 07/30/17 16:05 Basophils % 1.0 % (0.0-2.0) 07/30/17 16:05 PT 10.1 SECONDS (9.5-11.5) 07/29/17 19:57 INR 0.97 (0.5-1.4) 07/29/17 19:57 PTT (Actin FS) 22.0 SECONDS (26.0-38.0) L 07/29/17 19:57 Sodium 134 mEq/L (136-145) L 08/01/17 10:48 Potassium 3.4 mEq/L (3.5-5.1) L 08/01/17 10:48 Chloride 103 mEq/L (98-107) 08/01/17 10:48 Carbon Dioxide 26.5 mEq/L (21.0-31.0) 08/01/17 10:48 Anion Gap 7.9 (7.0-16.0) 08/01/17 10:48 BUN 21 mg/dL (7-25) 08/01/17 10:48 Creatinine 0.8 mg/dL (0.6-1.2) 08/01/17 10:48 Est GFR ( Amer) > 60.0 ml/min (>90) 08/01/17 10:48 Est GFR (Non-Af Amer) > 60.0 ml/min 08/01/17 10:48 BUN/Creatinine Ratio 26.3 08/01/17 10:48 Glucose 101 mg/dL (70-105) 08/01/17 10:48 Whole Bld Lactic Acid 2.03 mmol/L (0.60-1.99) H* 07/29/17 21:57 Calcium 8.4 mg/dL (8.6-10.3) L 08/01/17 10:48 Total Bilirubin 0.4 mg/dL (0.3-1.0) 08/01/17 10:48 AST 18 U/L (13-39) 08/01/17 10:48 ALT 28 U/L (7-52) 08/01/17 10:48 Alkaline Phosphatase 69 U/L (34-104) 08/01/17 10:48 Troponin I < 0.01 ng/mL (0.01-0.05) L 07/29/17 18:44 Total Protein 5.7 gm/dL (6.0-8.3) L 08/01/17 10:48 Albumin 3.4 gm/dL (3.7-5.3) L 08/01/17 10:48 Globulin 2.3 gm/dL 08/01/17 10:48 Albumin/Globulin Ratio 1.5 (1.0-1.8) 08/01/17 10:48 Lipase 13 U/L (11-82) 07/29/17 18:44 Tumor Marker AFP 5.6 ng/mL (0.0-8.3) 07/30/17 16:05 Urine Source CLEAN C 08/02/17 18:05 Urine Color YELLOW 08/02/17 18:05 Urine Clarity CLEAR (CLEAR) 08/02/17 18:05 Urine pH 7.0 (4.6 - 8.0) 08/02/17 18:05 Ur Specific [place] 1.020 (1.005-1.030) 08/02/17 18:05 Urine Protein NEGATIVE mg/dL (NEGATIVE) 08/02/17 18:05 Urine Glucose (UA) NEGATIVE mg/dL (NEGATIVE) 08/02/17 18:05 Urine Ketones NEGATIVE mg/dL (NEGATIVE) 08/02/17 18:05 Urine Blood SMALL (NEGATIVE) H 08/02/17 18:05 Urine Nitrate NEGATIVE (NEGATIVE) 08/02/17 18:05 Urine Bilirubin NEGATIVE (NEGATIVE) 08/02/17 18:05 Urine Urobilinogen 1.0 E.U./dL (0.2 - 1.0) 08/02/17 18:05 Ur Leukocyte Esterase NEGATIVE (NEGATIVE) 08/02/17 18:05 Urine RBC 5-10 /hpf (0-5) H 08/02/17 18:05 Urine WBC 2-5 /hpf (0-5) 08/02/17 18:05 Ur Epithelial Cells FEW /lpf (FEW) 08/02/17 18:05 Urine Bacteria FEW /hpf (NONE SEEN) 08/02/17 18:05 Urine Test NEGATIVE 07/29/17 20:20 Blood Type A POSITIVE 07/29/17 21:57 Antibody Screen NEGATIVE 07/29/17 21:57 - Physical Exam Vitals and I&O: Vital Signs Temp 98.2 F 08/03/17 03:52 Pulse 53 08/03/17 03:52 Resp 18 08/03/17 03:52 BP 100/58 08/03/17 03:52 Pulse Ox 100 08/03/17 03:52 Intake & Output 08/02/17 08/03/17 08/03/17 18:59 06:59 18:59 Intake Total 1600 1333.333 Balance 1600 1333.333 Weight (lbs) 56.245 kg 56.245 kg Intake: Intake, IV Amount 1093.333 Sodium Chloride 0.9% 1, 493.333 000 ml @ 50 mls/hr IV . Q20H [facility] Rx#:[id number] Oral 1600 240 Other: # Voids 3 2 # Bowel Movements 0 Active Medications: Current Medications Clonidine HCl (Lquqjqit-Stz-4) 1 patch TD We IFEANYI Stop: 09/28/17 01:59 PST Last Admin: 07/30/17 01:29 Dose: 1 patch Diphenhydramine HCl (Benadryl) 50 mg PO Q6HR PRN PRN Reason: Agitation (give with haldol) Divalproex Sodium (Depakote Dr) 250 mg PO TID IFEANYI Stop: 09/28/17 13:59 Last Admin: 08/02/17 20:28 Dose: Not Given Haloperidol (Haldol) 5 mg PO Q6HR PRN; Protocol PRN Reason: Agitation Stop: 09/28/17 09:34 Sodium Chloride (Nacl 0.9%) 1,000 mls @ 50 mls/hr IV .Q20H IFEANYI Stop: 09/29/17 08:08 Last Admin: 08/03/17 04:52 Dose: 50 mls/hr Lorazepam (Ativan) 1 mg PO Q6HR PRN; Protocol PRN Reason: Agitation Stop: 09/28/17 09:34 Magnesium Hydroxide (Milk Of Magnesia) 30 ml PO DAILY PRN PRN Reason: Constipation Stop: 09/28/17 09:34 Olanzapine (Zyprexa) 10 mg PO BID IFEANYI PRN Reason: Protocol Stop: 09/28/17 16:59 Last Admin: 08/02/17 23:55 Dose: 10 mg Ondansetron HCl (Zofran Odt) 4 mg PO Q6HR PRN PRN Reason: Nausea / Vomiting Trazodone HCl (Desyrel) 50 mg PO HS PRN; Protocol PRN Reason: Insomnia Stop: 09/28/17 09:34 General: Alert, Oriented x3 HEENT: Atraumatic Neck: Supple Cardiovascular: Regular rate, Normal S1, Normal S2 Lungs: Clear to auscultation Abdomen: Bowel sounds Extremities: no Clubbing, no Cyanosis, no Edema - Procedures Procedures: Procedures Procedure Code Date DX ULTRASOUND-GRAV UTER 88.78 01/15/99 OB US >/= 14 WKS SNGL FETUS 38502 01/15/99 Assessment/Plan - Problem List Patient Problems: All Active Problems Abdominal pain (Acute) R10.9 Hypertension (Acute) I10 Hyponatremia (Acute) E87.1 Intractable nausea and vomiting (Acute) R11.2 Liver mass (Acute) R16.0 - Assessment Assessment: intractable nausea/vomiting ... now resolved abdominal pain improved. ... improved Hemangioma noted on CT Abd per liver protocol.... GI consult with Dr. Phelps htn ...continue to monitor. improved. psychosis ... will dc back to [facility] for continued care. - Plan Plan: intractable nausea/vomiting abdominal pain improved. Hemangioma noted on CT Abd per liver protocol.... GI consult with Dr. Phelps htn ...continue to monitor. possible GIB ... repeat CBC. will order stool occult x 2. Patient on Protonix IV. GI consult. Nutritional Asmnt/Malnutr-PDOC - Dietary Evaluation Malnutrition Findings (Please click <Entered> for more info): Nutritional Asmnt/Malnutrition Start: 08/02/17 12: 48 Text: Status: Complete Freq: Document 08/02/17 12:48 BECCA (Rec: 08/02/17 12:54 BECCA JASMINE- [email or web address]) Nutritional Asmnt/Malnutrition Patient General Information Diagnosis HTN-Poss GI bleed Pertinent Medical Hx/Surgical Hx HTN, psychosis, bipolar, smoke Subjective Information Pt lying down and reported good appetite, denied N/V since admission Current Diet Order/ Nutrition Support soft/bland per GI Patient / S.O Not Indicated Pertinent Medications MOM, ondansetron, NS @50ml/hr Pertinent Labs 08/01/17: Na 134, K 3.4, Cl 103, CO2 26.5, BUN 21, Cr 0.8, Ca 8.4, glucose 101 Nutritional Hx/Data Height 1.65 m Height (Calculated Centimeters) 165.1 Current Weight (lbs) 56.245 kg Weight (Calculated Kilograms) 56.2 Weight (Calculated Grams) 77554.5 Recent Weight Change No Weight Status Approriate GI Symptoms GI Symptoms None Food Allergies No Cultural/Ethnic/Nondenominational Belief Pt denies Usual diet at home Pt states regular 3 meals a day Skin Integrity/Comment: enzo score 19 Current %PO Good (75-100%) Estimated Nutritional Goals BEE in Kcals: Using Current wt Calories/Kcals/Kg 25-30kcals/kg Kcals Calculated 1400-1680kcals/day Protein: Using Current wt Protein g/k-1.2g/kg Protein Calculated 56-67g/day Fluid: ml 1400-1680ml/day (1ml/kcal) Nutritional Problem 1. Problem Problem No nutrition diagnosis Etiology at this Signs/Symptoms: time. Intervention/Recommendation Comments Recommend continuing soft/ bland diet Expected Outcomes/Goals Expected Outcomes/Goals PO Intake >75%
--- NOTE | 2017-08-03 21:01 | Progress Notes ---
DATE: 08/02/2017 Case was discussed with staff of the patient, reviewed records. The patient continues to do the same. She no longer has been nauseated or vomiting. The patient was quiet now, more cooperative, less agitated. If she is medically stable, she could always go back to ____ to continue her treatment there and so far no side effects with the medication, no sedation, and no extrapyramidal symptoms. Thank you very much for allowing me to participate in the care of this most interesting lady. JOB# [id number]
--- NOTE | 2017-08-04 03:58 | Progress Notes ---
DATE: 08/03/2017 Case was discussed with staff of the patient, reviewed records. The patient has been quiet, more cooperative, now sleeping well, eating well. She is compliant with the medication with no side effects, no sedation, no nausea, no extrapyramidal symptoms. Able to smile more, less agitated and the patient can go back to [place] for continued treatment. Thank you very much for allowing me to participate in care of this most interesting lady. JOB# [id number]
--- NOTE | 2017-08-04 08:24 | General Progress Note ---
Subjective - Review of Systems Service Date: 08/04/17 Subjective: Awake,alert,afebrile. Patient refused IV fluids and blood pressure medication. CT abd showing hemangioma. Patient's mood better and cleared to return to [place] for further evaluation and treatment. Objective - Results Result Diagrams: 07/30/17 16:05 08/01/17 10:48 Recent Labs: Laboratory Last Values WBC 10.4 Th/cmm (4.8-10.8) 07/30/17 16:05 RBC 4.88 Mil/cmm (3.80-5.10) 07/30/17 16:05 Hgb 14.6 gm/dL (11.7-15.5) 07/30/17 16:05 Hct 43.6 % (35.0-45.0) 07/30/17 16:05 MCV 89.5 fl (81-100) 07/30/17 16:05 MCH 29.8 pg (27.0-31.0) 07/30/17 16:05 MCHC Differential 33.4 pg (28.0-36.0) 07/30/17 16:05 RDW 13.9 % (11.5-20.0) 07/30/17 16:05 Plt Count 494 Th/cmm (150-400) H 07/30/17 16:05 MPV 7.5 fl 07/30/17 16:05 Neutrophils % 73.9 % (40.0-80.0) 07/30/17 16:05 Lymphocytes % 19.3 % (20.0-50.0) L 07/30/17 16:05 Monocytes % 5.5 % (2.0-10.0) 07/30/17 16:05 Eosinophils % 0.3 % (0.0-5.0) 07/30/17 16:05 Basophils % 1.0 % (0.0-2.0) 07/30/17 16:05 PT 10.1 SECONDS (9.5-11.5) 07/29/17 19:57 INR 0.97 (0.5-1.4) 07/29/17 19:57 PTT (Actin FS) 22.0 SECONDS (26.0-38.0) L 07/29/17 19:57 Sodium 134 mEq/L (136-145) L 08/01/17 10:48 Potassium 3.4 mEq/L (3.5-5.1) L 08/01/17 10:48 Chloride 103 mEq/L (98-107) 08/01/17 10:48 Carbon Dioxide 26.5 mEq/L (21.0-31.0) 08/01/17 10:48 Anion Gap 7.9 (7.0-16.0) 08/01/17 10:48 BUN 21 mg/dL (7-25) 08/01/17 10:48 Creatinine 0.8 mg/dL (0.6-1.2) 08/01/17 10:48 Est GFR ( Amer) > 60.0 ml/min (>90) 08/01/17 10:48 Est GFR (Non-Af Amer) > 60.0 ml/min 08/01/17 10:48 BUN/Creatinine Ratio 26.3 08/01/17 10:48 Glucose 101 mg/dL (70-105) 08/01/17 10:48 Whole Bld Lactic Acid 2.03 mmol/L (0.60-1.99) H* 07/29/17 21:57 Calcium 8.4 mg/dL (8.6-10.3) L 08/01/17 10:48 Total Bilirubin 0.4 mg/dL (0.3-1.0) 08/01/17 10:48 AST 18 U/L (13-39) 08/01/17 10:48 ALT 28 U/L (7-52) 08/01/17 10:48 Alkaline Phosphatase 69 U/L (34-104) 08/01/17 10:48 Troponin I < 0.01 ng/mL (0.01-0.05) L 07/29/17 18:44 Total Protein 5.7 gm/dL (6.0-8.3) L 08/01/17 10:48 Albumin 3.4 gm/dL (3.7-5.3) L 08/01/17 10:48 Globulin 2.3 gm/dL 08/01/17 10:48 Albumin/Globulin Ratio 1.5 (1.0-1.8) 08/01/17 10:48 Lipase 13 U/L (11-82) 07/29/17 18:44 Tumor Marker AFP 5.6 ng/mL (0.0-8.3) 07/30/17 16:05 Urine Source CLEAN C 08/02/17 18:05 Urine Color YELLOW 08/02/17 18:05 Urine Clarity CLEAR (CLEAR) 08/02/17 18:05 Urine pH 7.0 (4.6 - 8.0) 08/02/17 18:05 Ur Specific [place] 1.020 (1.005-1.030) 08/02/17 18:05 Urine Protein NEGATIVE mg/dL (NEGATIVE) 08/02/17 18:05 Urine Glucose (UA) NEGATIVE mg/dL (NEGATIVE) 08/02/17 18:05 Urine Ketones NEGATIVE mg/dL (NEGATIVE) 08/02/17 18:05 Urine Blood SMALL (NEGATIVE) H 08/02/17 18:05 Urine Nitrate NEGATIVE (NEGATIVE) 08/02/17 18:05 Urine Bilirubin NEGATIVE (NEGATIVE) 08/02/17 18:05 Urine Urobilinogen 1.0 E.U./dL (0.2 - 1.0) 08/02/17 18:05 Ur Leukocyte Esterase NEGATIVE (NEGATIVE) 08/02/17 18:05 Urine RBC 5-10 /hpf (0-5) H 08/02/17 18:05 Urine WBC 2-5 /hpf (0-5) 08/02/17 18:05 Ur Epithelial Cells FEW /lpf (FEW) 08/02/17 18:05 Urine Bacteria FEW /hpf (NONE SEEN) 08/02/17 18:05 Urine Test NEGATIVE 07/29/17 20:20 Blood Type A POSITIVE 07/29/17 21:57 Antibody Screen NEGATIVE 07/29/17 21:57 - Physical Exam Vitals and I&O: Vital Signs Temp 97.5 F 08/04/17 04:16 Pulse 55 08/04/17 04:16 Resp 18 08/04/17 04:16 BP 99/66 08/04/17 04:16 Pulse Ox 95 08/04/17 04:16 Intake & Output 08/03/17 08/04/17 08/04/17 18:59 06:59 18:59 Intake Total 500 1000 Balance 500 1000 Weight (lbs) 56.245 kg 56.245 kg Intake: Oral 500 1000 Other: # Voids 3 3 # Bowel Movements 0 0 Active Medications: Current Medications Clonidine HCl (Rahfszqi-Ggs-9) 1 patch TD We IFEANYI Stop: 09/28/17 01:59 PST Last Admin: 07/30/17 01:29 Dose: 1 patch Diphenhydramine HCl (Benadryl) 50 mg PO Q6HR PRN PRN Reason: Agitation (give with haldol) Divalproex Sodium (Depakote Dr) 250 mg PO TID IFEANYI Stop: 09/28/17 13:59 Last Admin: 08/03/17 21:00 Dose: Not Given Haloperidol (Haldol) 5 mg PO Q6HR PRN; Protocol PRN Reason: Agitation Stop: 09/28/17 09:34 Sodium Chloride (Nacl 0.9%) 1,000 mls @ 50 mls/hr IV .Q20H IFEANYI Stop: 09/29/17 08:08 Last Admin: 08/03/17 22:00 Dose: Not Given Lorazepam (Ativan) 1 mg PO Q6HR PRN; Protocol PRN Reason: Agitation Stop: 09/28/17 09:34 Magnesium Hydroxide (Milk Of Magnesia) 30 ml PO DAILY PRN PRN Reason: Constipation Stop: 09/28/17 09:34 Olanzapine (Zyprexa) 10 mg PO BID IFEANYI PRN Reason: Protocol Stop: 09/28/17 16:59 Last Admin: 08/03/17 20:44 Dose: 10 mg Ondansetron HCl (Zofran Odt) 4 mg PO Q6HR PRN PRN Reason: Nausea / Vomiting Trazodone HCl (Desyrel) 50 mg PO HS PRN; Protocol PRN Reason: Insomnia Stop: 09/28/17 09:34 General: Alert, Oriented x3 HEENT: Atraumatic Neck: Supple Cardiovascular: Regular rate, Normal S1, Normal S2 Lungs: Clear to auscultation Abdomen: Bowel sounds Extremities: no Clubbing, no Cyanosis, no Edema - Procedures Procedures: Procedures Procedure Code Date DX ULTRASOUND-GRAV UTER 88.78 01/15/99 OB US >/= 14 WKS SNGL FETUS 13397 01/15/99 Assessment/Plan - Problem List Patient Problems: All Active Problems Abdominal pain (Acute) R10.9 Hypertension (Acute) I10 Hyponatremia (Acute) E87.1 Intractable nausea and vomiting (Acute) R11.2 Liver mass (Acute) R16.0 - Assessment Assessment: intractable nausea/vomiting ... now resolved abdominal pain improved. ... improved Hemangioma noted on CT Abd per liver protocol.... GI consult with Dr. Phelps htn ...continue to monitor. improved. psychosis ... will dc back to [facility] for continued care. Ok with Psychiatry. - Plan Plan: intractable nausea/vomiting abdominal pain improved. Hemangioma noted on CT Abd per liver protocol.... GI consult with Dr. Phelps htn ...continue to monitor. possible GIB ... repeat CBC. will order stool occult x 2. Patient on Protonix IV. GI consult. Nutritional Asmnt/Malnutr-PDOC - Dietary Evaluation Malnutrition Findings (Please click <Entered> for more info): Nutritional Asmnt/Malnutrition Start: 08/02/17 12: 48 Text: Status: Complete Freq: Document 08/02/17 12:48 BECCA (Rec: 08/02/17 12:54 BECCA JASMINE- FNS1) Nutritional Asmnt/Malnutrition Patient General Information Diagnosis HTN-Poss GI bleed Pertinent Medical Hx/Surgical Hx HTN, psychosis, bipolar, smoke Subjective Information Pt lying down and reported good appetite, denied N/V since admission Current Diet Order/ Nutrition Support soft/bland per GI Patient / S.O Not Indicated Pertinent Medications MOM, ondansetron, NS @50ml/hr Pertinent Labs 08/01/17: Na 134, K 3.4, Cl 103, CO2 26.5, BUN 21, Cr 0.8, Ca 8.4, glucose 101 Nutritional Hx/Data Height 1.65 m Height (Calculated Centimeters) 165.1 Current Weight (lbs) 56.245 kg Weight (Calculated Kilograms) 56.2 Weight (Calculated Grams) 04752.5 Recent Weight Change No Weight Status Approriate GI Symptoms GI Symptoms None Food Allergies No Cultural/Ethnic/Zoroastrianism Belief Pt denies Usual diet at home Pt states regular 3 meals a day Skin Integrity/Comment: enzo score 19 Current %PO Good (75-100%) Estimated Nutritional Goals BEE in Kcals: Using Current wt Calories/Kcals/Kg 25-30kcals/kg Kcals Calculated 1400-1680kcals/day Protein: Using Current wt Protein g/k-1.2g/kg Protein Calculated 56-67g/day Fluid: ml 1400-1680ml/day (1ml/kcal) Nutritional Problem 1. Problem Problem No nutrition diagnosis Etiology at this Signs/Symptoms: time. Intervention/Recommendation Comments Recommend continuing soft/ bland diet Expected Outcomes/Goals Expected Outcomes/Goals PO Intake >75%
[2017-08-04 08:30] LABS: % BASOPHILS 1.6 % (0.0-2.0); % EOSINOPHILS 2.1 % (0.0-5.0); % LYMPHOCYTES 25.4 % (20.0-50.0); % MONOCYTES 5.4 % (2.0-10.0); % NEUTROPHILS 65.5 % (40.0-80.0); HEMATOCRIT 40.4 % (35.0-45.0); HEMOGLOBIN 13.3 gm/dL (11.7-15.5); MEAN CELL VOLUME 89.6 fl (81-100); MEAN CORPUSCULAR HEMOGLOBIN 29.6 pg (27.0-31.0); MEAN PLATELET VOLUME 8.3 fl; NEUTROPHILE ABSOLUTE 4.7 Th/cmm (1.8-8.0); PLATELET COUNT 436 Th/cmm (150-400); RED BLOOD COUNT 4.51 Mil/cmm (3.80-5.10); RED CELL DISTRIBUTION WIDTH 13.9 % (11.5-20.0); WHITE BLOOD COUNT 7.2 Th/cmm (4.8-10.8)
[2017-08-04 08:48] LABS: LIPASE 24 U/L (11-82)
--- NOTE | 2017-08-04 16:42 | Discharge Summary ---
DATE OF DISCHARGE: 08/04/2017 PRELIMINARY DIAGNOSES: 1. Intractable nausea and vomiting. 2. Abdominal pain. 3. Liver mass. 4. Hyponatremia. 5. Hypertension. 6. Possible gastrointestinal bleed. 7. Bipolar disorder. DISCHARGE DIAGNOSES: 1. Intractable nausea and vomiting, now resolved. 2. Abdominal pain, now resolved. 3. Hemangioma to the liver. 4. Hyponatremia, now resolved. 5. Bipolar disorder. HISTORY OF PRESENT ILLNESS: This is a 47-year-old female who presents to [facility] ER from [facility] for a 5150 hold due to elevated blood pressure noted by the medical staff. The patient has a previous history of hypertension and is currently on blood pressure medications. She presents to the ER with a low-grade fever for the past ____ days. Denies any back pain or dysuria. Denies any blood in the stool. While in the ER, her blood pressure was noted to be 160/100. Her initial lab work done in the ER. White count was noted to be 12.1, hemoglobin 15.0, hematocrit 45.6, platelets 449. PT/INR was 10.1 and 0.97. Sodium decreased at 132, potassium 4.2, chloride 97, bicarbonate 25.5, BUN 17, creatinine 0.8, glucose was slightly elevated at 131. Her AST and ALT were normal. UA showed large blood, negative nitrites, negative leukocyte esterase, moderate epithelial cells were noted. A urine test also was negative. HOSPITAL COURSE: The patient did improve during her hospital stay. Her initial CT of her abdomen revealed a 3.3 x 2.0 cm mass noted in the inferior right lower lobe of the liver. Abdominal ultrasound was ordered for further evaluation, which showed no evidence of hydronephrosis, small amount of the gallbladder sludge was noted, but no stones were noted. The patient underwent another CT per liver protocol, which confirmed the presence of 2 cm liver mass, which is more consistent with hemangioma. The patient was seen and evaluated by GI. Please see dictated report. The patient also was seen by Psychiatry. Please see dictated report. The patient was subsequently discharged in stable condition, transferred back to [facility] for further evaluation and treatment. [facility]# [id number]
[2017-08-05 14:15] LABS: HEP B CORE IGM Negative (Negative); HEP C ANTIBODY <0.1 s/co ratio (0.0-0.9)
== END 2017-08-04 11:31 | disposition short-term general hospital (02) | DRG 314 ==
LOC: ER 18:01 → TELE 22:15 → MSI 07-31 11:55
PROVIDERS: ADMIT Family Medicine; ATTEND Family Medicine
DX: D18.09 Hemangioma of other sites (principal); K22.6 Gastro-esophageal laceration-hemorrhage syndrome; E87.1 Hypo-osmolality and hyponatremia; R16.0 Hepatomegaly, not elsewhere classified; I10 Essential (primary) hypertension; R11.2 Nausea with vomiting, unspecified; F31.9 Bipolar disorder, unspecified; R10.9 Unspecified abdominal pain; F17.210 Nicotine dependence, cigarettes, uncomplicated; Z88.2 Allergy status to sulfonamides; Z79.899 Other long term (current) drug therapy
CPT/HCPCS: 36415-UA; 74170-TC; 76700-TC; 80053-TC; 80074-90; 81001-TC; 81025-TC; 82105-90; 83605; 83690-TC; 84484-TC; 85025-TC; 85610-TC; 86850-TC; 86900-TC; 86901-TC; 93005; J2405; J7030; Q9967; Z7610